=== PATIENT | female | born 1950 | race Two or more races ===

== ENCOUNTER 2017-01-09 20:52 | Inpatient (IN) | payer OTHER ==
[~2017-01-09] VITALS: Ht 160 cm; Wt 88.0 kg
[2017-01-09] MEDS ORDERED: HYDR-2762 PO (21:10)
--- NOTE | 2017-01-09 21:36 | PHYS DOC ---
Past Medical History Past Medical History: Arthritis, High Cholesterol, Hypertension Additional Past Medical Histor: thyroid problem Past Surgical History: Cholecystectomy, Hysterectomy, Other Additional Past Surgical Histo: bilateral knee Alcohol Use: None Drug Use: None Adult General Chief Complaint Chief Complaint: CHEST PAIN-CARDIAC NATURE HPI HPI Patient is a 66 year old female who presents with chest pain. Patient reports this afternoon she had onset of pain in her left chest that radiates to her left shoulder. She also reports she is short of breath. No clear inciting or mitigating factors. She took a single baby aspirin today for symptoms with insufficient relief. She reports she has had similar symptoms over the past year intermittently, but has never sought care for it. No other acute complaints. Review of Systems Review of Systems Constitutional: Denies fever or chills Eyes: Denies change in visual acuity or eye pain HENT: Denies nasal congestion or sore throat Respiratory: Shortness of breath, cough Cardiovascular: L chest pain GI: Denies abdominal pain, nausea, vomiting, bloody stools or diarrhea : Denies dysuria or hematuria Musculoskeletal: L shoulder pain Integument: Denies rash or skin lesions Neurologic: Denies headache, focal weakness or sensory changes Current Medications Current Medications Current Medications Medications (Trade) Dose Ordered Sig/Cherie Start Time Stop Time Status Last Admin Dose Admin Aspirin (Children'S Aspirin) 324 mg 1X ONCE 01/09/17 21:45 01/09/17 21:46 DC 01/09/17 21:47 324 MG Nitroglycerin (Nitrostat) 0.4 mg PRN Q5MIN PRN 01/09/17 21:45 01/10/17 21:44 01/09/17 22:04 0.4 MG Allergies Allergies Allergies Coded Allergies Type Severity Reaction Last Updated Verified No Known Drug Allergies 01/09/17 No Physical Exam Physical Exam Constitutional: Well developed, well nourished, no acute distress, non-toxic appearance HENT: Normocephalic, atraumatic, bilateral external ears normal Eyes: EOMI, conjunctiva normal, no discharge Neck: Normal range of motion, no stridor Cardiovascular: Heart rate normal, regular rhythm, no murmur Lungs & Thorax: Bilateral breath sounds clear to auscultation; L chest minimally TTP Abdomen: Bowel sounds normal, soft, non-distended, no TTP Skin: Warm, dry, no erythema, no rash Extremities: No obvious deformity, no edema; L shoulder without TTP, visible abnormality Neurologic: Alert and oriented X 3, no gross deficits noted Current Patient Data Vital Signs Vital Signs Date Time Temp Pulse Resp B/P Pulse Ox O2 Delivery O2 Flow Rate FiO2 01/09/17 22:30 66 121/61 97 Room Air 01/09/17 20:55 97.8 16 97.8 Lab Values Laboratory Tests Test 01/09/17 21:16 White Blood Count 8.2x10^3/uL (4.0-11.0) Red Blood Count 4.02x10^6/uL (3.50-5.40) Hemoglobin 12.4g/dL (12.0-15.5) Hematocrit 36.3% (36.0-47.0) Mean Corpuscular Volume 90fL (79-100) Mean Corpuscular Hemoglobin 31pg (25-35) Mean Corpuscular Hemoglobin Concent 34g/dL (31-37) Red Cell Distribution Width 13.5% (11.5-14.5) Platelet Count 230x10^3/uL (140-400) Neutrophils (%) (Auto) 55% (31-73) Lymphocytes (%) (Auto) 34% (24-48) Monocytes (%) (Auto) 9% (0-9) Eosinophils (%) (Auto) 2% (0-3) Basophils (%) (Auto) 1% (0-3) Neutrophils # (Auto) 4.5x10^3uL (1.8-7.7) Lymphocytes # (Auto) 2.7x10^3/uL (1.0-4.8) Monocytes # (Auto) 0.7x10^3/uL (0.0-1.1) Eosinophils # (Auto) 0.2x10^3/uL (0.0-0.7) Basophils # (Auto) 0.1x10^3/uL (0.0-0.2) Sodium Level 143mmol/L (136-145) Potassium Level 3.9mmol/L (3.5-5.1) Chloride Level 105mmol/L (98-107) Carbon Dioxide Level 28mmol/L (21-32) Anion Gap 10 (6-14) Blood Urea Nitrogen 21mg/dL (7-20) H Creatinine 0.8mg/dL (0.6-1.0) Estimated GFR (Cockcroft-Gault) 71.8 Glucose Level 105mg/dL (70-99) H Calcium Level 9.2mg/dL (8.5-10.1) Troponin I Quantitative < 0.017ng/mL (0.000-0.055) Laboratory Tests 01/09/17 21:16 Laboratory Tests 01/09/17 21:16 EKG EKG EKG (my read): sinus rhythm, rate 77, LAD, intervals wnl, nonspecific ST changes Radiology/Procedures Radiology/Procedures CXR (My read): No acute abnormality Course & Med Decision Making Course & Med Decision Making Pertinent Labs and Imaging studies reviewed. (See chart for details) Patient is 66-year-old female who presents with chest pain and shortness of breath. Must consider ACS. Aspirin, nitroglycerin ordered. EKG, chest x-ray, labs ordered to evaluate. Results of EKG and chest x-ray as above. Labs largely unremarkable. Troponin within normal limits. Discussed results with patient and family. Discussed Dr. Nicolas (covering for Dr. Espana), will admit under his care for further evaluation and treatment. Dragon Disclaimer Dragon Disclaimer This electronic medical record was generated, in whole or in part, using a voice recognition dictation system. Departure Departure Impression: Primary Impression: Chest pain Additional Impression: SOB (shortness of breath) Disposition: 09 ADMITTED INPATIENT Admitting Physician: Hipolito Nicolas Condition: STABLE Referrals: DEBRA ESPANA MD (PCP) Problem Qualifiers BELLE CAO MD Jan 09, 2017 21:37
[2017-01-09 21:43] LABS: BASO # 0.1 x10^3/uL (0.0-0.2); BASO % 1 % (0-3); EOS % 2 % (0-3); HEMATOCRIT 36.3 % (36.0-47.0); HEMOGLOBIN 12.4 g/dL (12.0-15.5); LYMPH # 2.7 x10^3/uL (1.0-4.8); LYMPH % 34 % (24-48); MEAN CORPUSCULAR HEMOGLOBIN 31 pg (25-35); MEAN CORPUSCULAR HGB CONC 34 g/dL (31-37); MEAN CORPUSCULAR VOLUME 90 fL (79-100); MONO % 9 % (0-9); NEUT % 55 % (31-73); PLATELET COUNT 230 x10^3/uL (140-400); RED BLOOD COUNT 4.02 x10^6/uL (3.50-5.40); RED CELL DISTRIBUTION WIDTH 13.5 % (11.5-14.5); WHITE BLOOD COUNT 8.2 x10^3/uL (4.0-11.0)
[2017-01-09] MEDS ORDERED: ASPIRIN 81 MG TAB.CHEW PO ONE (21:45)
[2017-01-09] MEDS: NITROGLYCERIN SUBLINGUAL 0.4 MG BOTTLE OF 25. SL PRN ×2 (21:48→22:04)
[2017-01-09 21:57] LABS: CALCIUM 9.2 mg/dL (8.5-10.1); CREATININE 0.8 mg/dL (0.6-1.0); GFR 71.8; POTASSIUM 3.9 mmol/L (3.5-5.1)
[2017-01-09] MEDS ORDERED: ACETAMINOPHEN 325 MG TABLET. PO PRN (22:45)
[2017-01-09] MEDS ORDERED: ONDANSETRON PF 4 MG/2 ML VIAL. IV PRN (22:45)
[2017-01-09] MEDS ORDERED: MORPHINE SULFATE 2 MG/ML DISP.SYRIN. IV PRN (22:45)
[2017-01-10 03:38] VITALS: BP 136/70
--- NOTE | 2017-01-10 07:40 | RAD ---
Chest, 2 views, 01/09/2017: History: Left-sided chest pain and shortness of breath Comparison is made to a study from 05/13/2012. The heart size and pulmonary vascularity are normal. No pulmonary infiltrates are seen. There is no evidence of pleural fluid. Moderate hypertrophic spurring is present in the spine. IMPRESSION: No acute cardiopulmonary abnormality is detected.
[2017-01-10 07:45] VITALS: BP 141/68
[2017-01-10] MEDS ORDERED: ERGO500012 (07:58)
[2017-01-10] MEDS ORDERED: LEVO100T82 (07:58)
[2017-01-10] MEDS ORDERED: LISI1TAB3 (07:58)
[2017-01-10] MEDS ORDERED: GABA300C8 (07:58)
[2017-01-10] MEDS ORDERED: ATOR40TA59 (07:58)
[2017-01-10] MEDS ORDERED: HYDROCO/APAP (07:58)
[2017-01-10] MEDS ORDERED: CYCLOBENZAPRINE 10 MG TABLET. PO PRN (08:30)
[2017-01-10] MEDS ORDERED: IV NORMAL SALINE 1000ML BAG 1,000 ML IV ONE (08:30)
[2017-01-10] MEDS ORDERED: LEVOTHYROXINE 100 MCG TABLET PO SCH (08:30)
[2017-01-10] MEDS ORDERED: HYDROCODONE/APAP 7.5/325MG TABLET. PO PRN (08:30)
--- NOTE | 2017-01-10 08:33 | EKG ---
[facility] [address] [place] [address] Test Date: 2017-01-09 Test Time: 20:59:45 Pat Name: JACKIE CASTRO Department: Room: Gender: F Certified First Assistant: : 1950 Requested By: BELLE CAO Order Number: [id number] Reading MD: Measurements Intervals [place] Rate: 77 P: 31 CT: 140 QRS: -7 QRSD: 80 T: 34 QT: 368 QTc: 418 Interpretive Statements SINUS RHYTHM LEFTWARD AXIS INCOMPLETE RIGHT BUNDLE BRANCH BLOCK OTHERWISE NORMAL ECG RI6.01 Compared to ECG 06/06/2012 16:23:22 Incomplete right bundle-branch block now present
--- NOTE | 2017-01-10 08:34 | PDOC ---
Provider Note Provider Note See admission H&P/23 hour short stay summary dictation #[id number] Impression: 1. Left chest pain, likely musculoskeletal but with risk factors: 2. Diabetes mellitus type 2: 3. Hypertension: 4. Hyperlipidemia: 5. Hypothyroidism: 6. Rheumatoid arthritis: JOCELYNE MARTÍNEZ MD Jan 10, 2017 08:34
[2017-01-10] MEDS ORDERED: HYDROCHLOROTHIAZIDE 12.5 MG CAPSULE. PO SCH (09:00)
[2017-01-10] MEDS ORDERED: LISINOPRIL 10 MG TABLET PO SCH (09:00)
--- NOTE | 2017-01-10 09:20 | PDOC2 ---
MERCEDES CHOPRA ROPING TENDER 01/10/17 0920: CARDIAC CONSULT DATE OF CONSULT Date of Consult DATE: 01/10/17 TIME: 09:20 REASON FOR CONSULT Reason for Consult: chest pain, SOB REFERRING PHYSICIAN Referring Physician: Dr. Billy Quick SOURCE Source: Chart review HISTORY OF PRESENT ILLNESS HISTORY OF PRESENT ILLNESS 66 year old non-Luxembourgish speaking female with a left shoulder and left breast pain while seated yesterday. One previous episode 6 months ago. Pain exacerbated by turning her head and moving left arm backwards as well as walking. Pain has been constant and she took one baby aspirin yesterday. Per son who interpreted, pain associated with dyspnea, dizziness, lightheadedness, nausea and vomiting. Troponin levels not consistent with AMI and no acute changes in EKG. Reason for Visit: chest and shoulder pain PAST MEDICAL HISTORY Cardiovascular: HTN Endocrine: Diabetes (pt son's denies this diagnosis) PAST SURGICAL HISTORY Past Surgical History: Cholecystectomy, Hysterectomy FAMILY HISTORY Family History: Heart Disease (sister in her 60s; brother in his 70s) SOCIAL HISTORY Smoke: No ALCOHOL: none Drugs: None Lives: with Family CURRENT MEDICATIONS CURRENT MEDICATIONS Current Medications Medications (Trade) Dose Ordered Sig/Cherie Route PRN Reason Start Time Stop Time Status Last Admin Dose Admin Aspirin (Children'S Aspirin) 324 mg 1X ONCE PO 01/09/17 21:45 01/09/17 21:46 DC 01/09/17 21:47 Nitroglycerin (Nitrostat) 0.4 mg PRN Q5MIN PRN SL CP RATING > 1/10 01/09/17 21:45 01/10/17 21:44 01/09/17 22:04 ALLERGIES ALLERGIES: Coded Allergies: No Known Drug Allergies (Unverified , 01/09/17) ROS Review of System 14 point review with pertinent positives in HPI PHYSICAL EXAM General: Alert, Cooperative HEENT: Atraumatic, PERRLA Lungs: Clear to auscultation Heart: Regular rate, Normal S1, Normal S2, No murmurs, Other (no carotid bruits ) Abdomen: Normal bowel sounds, No tenderness Extremities: No edema, Normal pulses Skin: No rashes Neuro: Normal speech Psych/Mental Status: Mental status NL MUSCULOSKELETAL: No deformity VITALS VITALS Vital Signs Date Time Temp Pulse Resp B/P Pulse Ox O2 Delivery O2 Flow Rate FiO2 01/10/17 07:45 97.9 61 18 141/68 95 Room Air 97.9 LABS Lab: Laboratory Tests Test 01/09/17 21:16 01/10/17 05:00 White Blood Count 8.2x10^3/uL (4.0-11.0) Red Blood Count 4.02x10^6/uL (3.50-5.40) Hemoglobin 12.4g/dL (12.0-15.5) Hematocrit 36.3% (36.0-47.0) Mean Corpuscular Volume 90fL (79-100) Mean Corpuscular Hemoglobin 31pg (25-35) Mean Corpuscular Hemoglobin Concent 34g/dL (31-37) Red Cell Distribution Width 13.5% (11.5-14.5) Platelet Count 230x10^3/uL (140-400) Neutrophils (%) (Auto) 55% (31-73) Lymphocytes (%) (Auto) 34% (24-48) Monocytes (%) (Auto) 9% (0-9) Eosinophils (%) (Auto) 2% (0-3) Basophils (%) (Auto) 1% (0-3) Neutrophils # (Auto) 4.5x10^3uL (1.8-7.7) Lymphocytes # (Auto) 2.7x10^3/uL (1.0-4.8) Monocytes # (Auto) 0.7x10^3/uL (0.0-1.1) Eosinophils # (Auto) 0.2x10^3/uL (0.0-0.7) Basophils # (Auto) 0.1x10^3/uL (0.0-0.2) Sodium Level 143mmol/L (136-145) Potassium Level 3.9mmol/L (3.5-5.1) Chloride Level 105mmol/L (98-107) Carbon Dioxide Level 28mmol/L (21-32) Anion Gap 10 (6-14) Blood Urea Nitrogen 21mg/dL (7-20) Creatinine 0.8mg/dL (0.6-1.0) Estimated GFR (Cockcroft-Gault) 71.8 Glucose Level 105mg/dL (70-99) Calcium Level 9.2mg/dL (8.5-10.1) Troponin I Quantitative < 0.017ng/mL (0.000-0.055) < 0.017ng/mL (0.000-0.055) IMAGES IMAGES CXR - WNL EKG EKG no acute changes ASSESSMENT/PLAN ASSESSMENT/PLAN 1. chest pain no acute changes in EKG and troponin levels not consistent with AMI pain reproducible; suspect musculoskeletal, however as it becomes worse with walking and she may be diabetic, will send for exercise treadmill (had breakfast earlier today) if non-ischemic, expect discharge later today 2. ? DM son denies 3. HTN continue meds Problems: AGATHA BROOKS MD 01/10/17 1636: CARDIAC CONSULT ALLERGIES ALLERGIES: Coded Allergies: No Known Drug Allergies (Unverified , 01/09/17) ASSESSMENT/PLAN ASSESSMENT/PLAN Patient seen and examined. Agree with TOPSTITCHER ZIGZAG's assessment and plan. Chest pain with atypical features, reproducible to palpation most probably musculoskeletal. Nuclear stress test did not show any significant ischemia. 2- D echo showed normal LV function. No further cardiac workup is indicated at this time. Thank you for your consultation. Problems: MERCEDES CHOPRA APRN Jan 10, 2017 09:20 AGATHA BROOKS MD Jan 10, 2017 16:36
[2017-01-10] MEDS: IBUPROFEN 600 MG TABLET. PO SCH ×2 (09:43→15:40)
[2017-01-10 11:05] VITALS: BP 137/64
--- NOTE | 2017-01-10 13:39 | RAD ---
APPROVED REPORT Test Type: Exercise Stress Nurse/Tech: CARTER Chacon RN Test Indications: Chest pain Cardiac History: HTN, see EHR Medications: see EHR Medical History: see EHR Resting ECG: SR Resting Heart Rate: 67 bpm Resting Blood Pressure: 153/76mmHg Pretest Chest Pain: No chest pain Nurse/Tech Notes Lungs CTA, heart tones WNL Consent: The procedure was explained to the patient in lay terms. Informed consent was witnessed. Enrique eout was entered into [employer]. History and Stress Test performed by RT Stephanie (R) (N) Stress Symptoms Dyspnea, No chest pain POST EXERCISE Reason for Termination: Reached target heart rate Target HR: Yes Max HR: 146 bpm 112% of Maximum Predicted HR: 130 bpm Exercise duration: 3:00 min:sec, 1 Stage Exercise capacity: 7METs Max Blood Pressure: 190/72mmHg Blood Pressure response to exercise: Normal blood pressure response during stress. Chest Pain: No. Arrhythmia: No. ST Change: No. INTERPRETATION Stress EKG Conclusion: Baseline EKG showed sinus rhythm. No ischemic changes at peak stress. No arr hythmias. Imaging Protocol IMAGE PROTOCOL: Rest Tc-99m/stress Tc-99m 1 day Rest: Stress: Viability: Radiopharm.Tc99m NeibmogbtIz81p Sestamibi Zfpp83uCr 33mCi Img Date 01/10/2017 01/10/2017 Inj-Img Nhmq49ncs. 45min. Rest Admin Site:IV - Right AntecubitalAdministrator:RT Stephanie (R)(N) Stress Admin Site: IV - Right AntecubitalAdministrator: RT Stephanie (R)(N) STRESS DATA End Diast. Vol.59.0mlAv. Heart Rate75.0bpm End Syst. Vol.17.0mlCO Index BSA0.0L/min Myocardial Mont164.0gEject. Tqwhpqpe01.0% Stress Rates Pk. Fill Rate2.90EDV/secLVtime Pk. Fill 179.13msec Pk. Empty Rate5.27ESV/secLVtime Pk. Bsthm566.98msec 11/28 Pk. Fill0.70EDV/sec Stress Scores Regional WT1.00Summed WT2.00 Regional WM0.00Summed WM0.00 Study quality was good. Left Ventricular size was Normal at Rest and Stress. Lung uptake was Normal. Left Ventricular ejection fraction is 71%. The rest and stress images show normal perfusion, normal contraction and thickening. LV Perf. Quant 17 Seg. SSS0.00 17 Seg. SRS0.00 17 Seg. SDS0.00 Stress Defect Extent (% LAD)0.00Rest Defect Extent (% LAD)0.00Rev. Defect Extent (% LAD)0.00 Stress Defect Extent (% LCX) 0.00Rest Defect Extent (% LCX)0.00Rev. Defect Extent (% LCX)0.00 Stress Defect Extent (% RCA)0.00Rest Defect Extent (% RCA)0.00Rev. Defect Extent (% RCA)0.00 Stress Defect Extent (% KELLEN)0.00Rest Defect Extent (% KELLEN)0.00Rev. Defect Extent (% KELLEN)0.00 Conclusion 1. Treadmill exercise cardioisotope stress test did not show any evidence of ischemia or infarct. 2. Normal left ventricular systolic function with ejection fraction calculated at 71%. 3. Patient had average exercise tolerance. Low risk for cardiac events.
[2017-01-10 15:30] VITALS: BP 128/56
--- NOTE | 2017-01-10 16:47 | DISCH ---
DISCHARGE INSTRUCTIONS Condition on Discharge Condition on Discharge: Stable Activity After Discharge Activity Instructions for Disc: Activity as tolerated Other activity instructions: heat or ice to the left posterior shoulder Diet after Discharge Diet after Discharge: Cardiac Contacting the DRJin after DC Call your doctor for: If your condition worsens Follow-Up Follow up with: Dr. Espana in 1-2 weeks JOCELYNE MARTÍNEZ MD Jan 10, 2017 16:47
[2017-01-10] MEDS ORDERED: CYCL10TA2 PO (16:51)
[2017-01-10] MEDS ORDERED: IBUP200T77 PO (16:51)
[2017-01-10] MEDS ORDERED: ATORVASTATIN CALCIUM 40 MG TABLET. PO SCH (21:00)
--- NOTE | 2017-01-10 23:39 | HP ---
ADMIT DATE: 01/10/2017 ADMISSION HISTORY AND PHYSICAL AND 23-HOUR SHORT-STAY SUMMARY ATTENDING PHYSICIAN: Jocelyne Martínez MD CHIEF COMPLAINT: Left chest pain. HISTORY OF PRESENT ILLNESS: The patient is a 66-year-old female with the onset at approximately 3:00 p.m. earlier in the day of admission of left-sided chest pain. It was rated 8/10 level of pain. It began while she was watching TV. It seemed disturbed mostly in the left posterior back and then shoot straight through to the left anterior chest. She maybe had an episode of this in the past 6 months and has had several episodes over the last year. This was more significant. She did have associated shortness of breath, dizziness and nausea. There are no palpitations that she is aware of. She did receive nitroglycerin in the Emergency Room and treatment and the pain decreased to 2/10 level. PAST MEDICAL HISTORY: Significant for hypertension, hyperlipidemia, diabetes mellitus type 2, which is diet controlled, hypothyroidism, and rheumatoid arthritis. PAST SURGICAL HISTORY: She has had surgery on her bilateral knees. SOCIAL HISTORY: She lives at home with her son and two brothers. She has never smoked. She denies any alcohol use. ALLERGIES TO MEDICATIONS: No known drug allergies. MEDICATIONS: At time of admission include Lipitor 40 mg p.o. daily, vitamin D 50,000 units p.o. weekly, gabapentin 300 mg, although it is uncertain if she is actually taking this or not, [place] 7.5/325 one p.o. q. 6 hours p.r.n., levothyroxine 100 mcg p.o. daily, lisinopril/hydrochlorothiazide 10/12.5 one p.o. daily. FAMILY HISTORY: Noncontributory, although her mother has been diagnosed with a stroke in the past. REVIEW OF SYSTEMS: The patient's history and review of systems is gathered through her son who is translating for her. There have been no fevers. No difficulty swallowing. No cough or other episodes of shortness of breath, no palpitations, no heartburn or reflux. No nausea or vomiting. She does have some constipation, which she relates to her medications, but nothing of any significance lately. No lower extremity swelling at present, although she does have some occasional swelling. It has not been progressive. She is voiding without any difficulty and denies any dysuria or hematuria. She denies any localized weakness. PHYSICAL EXAMINATION: VITAL SIGNS: At the time of admission are temperature 97.8, pulse 75, respiratory rate 16, blood pressure 177/86, O2 sat 96% on room air. GENERAL: The patient is alert. She is answering questions through her son who is translating, in no acute distress, well nourished and developed appearing. HEENT: The pupils are equal and round. The extraocular motions are intact. Sclerae are anicteric. Oropharynx is moist. NECK: Without JVD or bruit. No thyromegaly. No significant anterior cervical adenopathy. CHEST: Clear to auscultation bilaterally with okay air movement. CARDIOVASCULAR: The heart has a regular rate and rhythm without murmur. ABDOMEN: Positive bowel sounds, soft, nontender, nondistended, no guarding or rebound. EXTREMITIES: There is no edema. NEUROLOGIC: Grossly intact and nonfocal. BACK: There is tenderness to palpation in the superior portion of the chest wall posteriorly at approximately the T3 or T4 level. Palpation of this area does recreate some of the discomfort. There is also some anterior chest pain to palpation, again which does recreate some of the discomfort. EXTREMITIES: There is no edema. HOSPITAL COURSE: The patient was admitted. She underwent serial cardiac enzymes, which were negative. She was seen in consultation with Cardiology. She was started on ibuprofen 600 mg t.i.d. She did have some improvement in her discomfort. Her other home medications were continued. She did undergo an exercise stress test, which was read as low risk average exercise tolerance, normal left ventricular systolic function with an ejection fraction of 71%. No evidence of ischemia or infarct. Based on the negative stress test and the high likelihood of reproducible pain with palpation, it was felt that she could be discharged to home. DISCHARGE DIAGNOSES: 1. Left chest pain, atypical and most likely musculoskeletal in etiology. 2. Diabetes mellitus type 2, diet controlled. 3. Hypertension. 4. Hyperlipidemia. 5. Hypothyroidism. 6. Rheumatoid arthritis. LABORATORIES DURING THE HOSPITALIZATION: WBC 8.2, hemoglobin 12.4, platelets 230. Sodium 143, potassium 3.9, chloride 105, CO2 28, BUN 21, creatinine 0.8, glucose 105. Serial troponins were negative. Chest x-ray did not show any acute abnormality. EKG, preliminary read showed nonspecific ST wave changes. DISCHARGE DIET: Cardiac diet. DISCHARGE ACTIVITY: As tolerated. FOLLOWUP: The patient is to follow up with Dr. Espana in 1-2 weeks. MEDICATIONS AT THE TIME DISCHARGE: Unchanged except for the addition of Flexeril 10 mg p.o. t.i.d. p.r.n. and ibuprofen 200 mg over the counter 2-3 pills t.i.d. p.r.n. JOCELYNE MARTÍNEZ MD DR: VEL/remy JOB#: [id number] / [id number] JENNIFERD
== END 2017-01-10 17:00 | disposition home or self-care (01) | DRG 206 ==
LOC: ER 20:52 → 6 SOUTH 22:34
PROVIDERS: ADMIT Family Medicine; ATTEND Family Medicine
DX: M94.0 Chondrocostal junction syndrome [Tietze] (principal); E03.9 Hypothyroidism, unspecified; E11.9 Type 2 diabetes mellitus without complications; E78.00 Pure hypercholesterolemia, unspecified; E78.5 Hyperlipidemia, unspecified; I10 Essential (primary) hypertension; M06.9 Rheumatoid arthritis, unspecified; N64.4 Mastodynia; Z90.49 Acquired absence of other specified parts of digestive tract; Z90.710 Acquired absence of both cervix and uterus; Z82.49 Family history of ischemic heart disease and other diseases of the circulatory system; Z79.899 Other long term (current) drug therapy
CPT/HCPCS: 36415; 71020; 78452; 80048; 84484; 85027; 93005; 93017; 96374; 96376; A9500; J7030; 99285-25

== ENCOUNTER → 2017-12-28 | Outpatient (CLI) | payer OTHER | END | disposition home or self-care (01) | LOC: KCIC DEXA 14:02 | DX: Z13.820 Encounter for screening for osteoporosis (principal); M85.88 Other specified disorders of bone density and structure, other site; Z78.0 Asymptomatic menopausal state | CPT/HCPCS: 77080 ==

== ENCOUNTER → 2018-12-11 | Outpatient (CLI) | payer OTHER ==
[~2018-12-11] MED LIST: ATOR40TA59; CYCL10TA2 PO; ERGO500027; GABA300C18; HYDR-2765 PO; HYDROCO/APAP; IBUP200T77 PO; LEVO100T82; LISI1TAB3
--- NOTE | 2018-12-11 11:15 | KCIC ---
Examination: Ultrasound abdomen complete and ultrasound pelvis limited HISTORY: History of abdominal pain, pelvic pain COMPARISON: None available FINDINGS: The visualized vaginal cuff region grossly appears unremarkable. The right ovary, left ovary could not be identified. No evidence of free fluid identified in the pelvis. The liver measures 17.1 cm. There is increased echogenicity noted in the liver likely hepatic steatosis. The common bile duct measures 1 cm in diameter. The gallbladder is not identified however in the region of the right upper quadrant there is fluid-filled stomach which limits evaluation. The right kidney measures 9.3 x 3.7 x 4.0 cm. The left kidney measures 10.1 x 4.5 x 4.2 cm. The spleen measures 7.7 cm in length. The visualized pancreas grossly appears unremarkable. However evaluation limited due to bowel gas. The evaluation of the aorta, IVC limited due to bowel gas. IMPRESSION: 1. Hepatomegaly with hepatic steatosis. 2. Prominent appearing common bile duct measuring 1 cm in diameter probably post cholecystectomy changes. Correlate with lab values. 3. Limited examination due to patient body habitus and due to bowel gas. 4. The vaginal cuff region grossly appears unremarkable. The right and left ovaries could not be identified. Electronically signed by: Hair Holt MD (12/11/2018 11:11 AM) [id number]
--- NOTE | 2018-12-12 08:33 | KCIC ---
EXAM: AP, lateral and lumbosacral spot views of the lumbar spine DATE: 12/11/2018 11:00 AM INDICATION: Left-sided low back pain for 2 weeks COMPARISON: No Prior FINDINGS: There are 5 nonrib-bearing lumbar-type vertebral bodies. Vertebral body heights are preserved. Mild L1-2, L4-5 and L5-S1 intervertebral disc height loss. Moderate facet degenerative changes at L4-5 and L5-S1. Trace anterolisthesis of L4 on L5 (measuring 3 mm). Cholecystectomy clips are seen. IMPRESSION: 1. Multilevel spondylosis as above. 2. Negative acute fracture. 3. Trace anterolisthesis of L4 on L5. Electronically signed by: Edy Medina MD (12/12/2018 8:28 AM) [id number]
== END | disposition home or self-care (01) ==
LOC: KCIC US 08:38
PROVIDERS: ATTEND Family Medicine
DX: K76.0 Fatty (change of) liver, not elsewhere classified (principal); R16.0 Hepatomegaly, not elsewhere classified; M47.896 Other spondylosis, lumbar region; M51.36 Other intervertebral disc degeneration, lumbar region; M51.37 Other intervertebral disc degeneration, lumbosacral region; Z90.710 Acquired absence of both cervix and uterus; Z90.49 Acquired absence of other specified parts of digestive tract
CPT/HCPCS: 72100; 76700; 76857

== ENCOUNTER 2019-03-07 14:14 | Emergency (ER) | payer OTHER ==
[~2019-03-07] VITALS: Ht 160 cm; Wt 83.5 kg
[2019-03-07 15:01] VITALS: BP 218/93
[2019-03-07] MEDS ORDERED: HYDROcodone/APAP 5/325MG 1 TAB TABLET PO ONE (15:30)
[2019-03-07] MEDS ORDERED: NAPROXEN 500 MG TABLET PO STA (15:36)
--- NOTE | 2019-03-07 15:37 | RAD ---
Examination: 4 views of the right knee HISTORY: History of hyperextended right knee, pain COMPARISON: None available FINDINGS: Right knee arthroplasty changes in normal alignment. There is no acute fracture identified. Small knee joint effusion is identified IMPRESSION: 1. No acute osseous findings. 2. Small knee joint effusion. Electronically signed by: Hair Holt MD (03/07/2019 3:35 PM) [id number]
--- NOTE | 2019-03-07 16:22 | PHYS DOC ---
Past Medical History Past Medical History: Arthritis, High Cholesterol, Hypertension Additional Past Medical Histor: thyroid problem Past Surgical History: Cholecystectomy, Hysterectomy, Other Additional Past Surgical Histo: bilateral knee Alcohol Use: None Drug Use: None Adult General Chief Complaint Chief Complaint: KNEE INJURY HPI HPI Patient is a 68 year old female with history of high cholesterol, hypertension , who presents to the ED today complaining of 8 out of 10 right anterior knee pain that began yesterday while trying to put her socks on. She states she dislocated and relocated the knee. Patient states she has previous history of right knee replacement. She describes the pain as sharp and worse on weight bearing. She has taken hydrocodone with some relief. Review of Systems Review of Systems Constitutional: Denies fever or chills [] Musculoskeletal: Reports right knee pain Integument: Denies rash or skin lesions [] Neurologic: Denies headache, focal weakness or sensory changes [] All other systems were reviewed and found to be within normal limits, except as documented in this note. Current Medications Current Medications Current Medications Medications (Trade) Dose Ordered Sig/Cherie Start Time Stop Time Status Last Admin Dose Admin Acetaminophen/ Hydrocodone Bitart (Lortab 5/325) 2 tab 1X ONCE 03/07/19 15:30 03/07/19 15:31 DC 03/07/19 15:55 2 TAB Naproxen (Naprosyn) 500 mg 1X STAT 03/07/19 15:36 03/07/19 15:44 DC 03/07/19 15:55 500 MG Allergies Allergies Allergies Coded Allergies Type Severity Reaction Last Updated Verified No Known Drug Allergies 01/09/17 No Physical Exam Physical Exam Constitutional: Well developed, well nourished, no acute distress, non-toxic appearance. [] Skin: Warm, dry, no erythema, no rash. [] Back: No tenderness, no CVA tenderness. [] Extremities: Right knee with no obvious deformity, old healed surgical incision noted on the right anterior knee. Diffuse tenderness throughout the right anterior knee, full range of motion to the right knee. No laxity. +2 right pedal pulse. Cap refill less than 2 seconds the right lower extremity. Sensation intact to the right lower extremity. Neurologic: Alert and oriented X 3, normal motor function, normal sensory function, no focal deficits noted. [] Psychologic: Affect normal, judgement normal, mood normal. [] Current Patient Data Vital Signs Vital Signs Date Time Temp Pulse Resp B/P (MAP) Pulse Ox O2 Delivery O2 Flow Rate FiO2 03/07/19 15:55 16 98 03/07/19 15:01 98.2 67 218/93 (134) Room Air 98.2 EKG EKG [] Radiology/Procedures Radiology/Procedures []PROCEDURE: KNEE RIGHT 4V Examination: 4 views of the right knee HISTORY: History of hyperextended right knee, pain COMPARISON: None available FINDINGS: Right knee arthroplasty changes in normal alignment. There is no acute fracture identified. Small knee joint effusion is identified IMPRESSION: 1. No acute osseous findings. 2. Small knee joint effusion. Electronically signed by: Hair Holt MD (03/07/2019 3:35 PM) [id number] DICTATED and SIGNED BY: HAIR HOLT MD DATE: 03/07/19 1535 Course & Med Decision Making Course & Med Decision Making Pertinent Labs and Imaging studies reviewed. (See chart for details) This is a 68-year-old. Patient presenting to the ED today with right knee pain, she believes she dislocated and relocated the knee last night. Right knee x- rays interpreted by radiologist are negative for any acute findings. Noted for small joint effusion. Raul bandage applied to the right knee by the ED RN, neurovascular exam is intact. Ice elevation encouraged. Patient has hydrocodone at home she can take it as needed for pain. Follow-up with orthopedic doctor. Omayra Disclaimer Dragon Disclaimer This electronic medical record was generated, in whole or in part, using a voice recognition dictation system. Departure Departure Impression: Primary Impression: Right knee sprain Additional Impression: Joint effusion, knee Disposition: HOME, SELF-CARE Condition: STABLE Referrals: DEBRA RICHMOND MD (PCP) JOSEPH FLORES MD follow up in 1-2 weeks Patient Instructions: Knee Sprain Additional Instructions: You were seen for right knee pain, your right knee xrays are negative for any acute findings. You have small amount of fluid in the right knee which your body should absorb in a few days. Right pinnae with a Raul bandage provided as needed and tolerated. Try to ice and elevate the knee. Continue taking your hydrocodone at home as needed for pain. Problem Qualifiers Primary Impression: Right knee sprain Encounter type: initial encounter Involved ligament of knee: unspecified ligament Qualified Codes: S83.91XA - Sprain of unspecified site of right knee , initial encounter Additional Impression: Joint effusion, knee Laterality: right Qualified Codes: M25.461 - Effusion, right knee SIOMARA LARKIN [employer] Mar 07, 2019 16:22
== END 2019-03-07 16:28 | disposition home or self-care (01) ==
LOC: ER 14:14
DX: S83.8X1A Sprain of other specified parts of right knee, initial encounter (principal); M25.461 Effusion, right knee; E78.00 Pure hypercholesterolemia, unspecified; I10 Essential (primary) hypertension; Z90.49 Acquired absence of other specified parts of digestive tract; Z90.710 Acquired absence of both cervix and uterus; Z96.651 Presence of right artificial knee joint; X58.XXXA Exposure to other specified factors, initial encounter; Y93.89 Activity, other specified; Y92.89 Other specified places as the place of occurrence of the external cause; Y99.8 Other external cause status
CPT/HCPCS: 73564; 99284

== ENCOUNTER → 2020-05-18 | Outpatient (CLI) | payer OTHER, MEDICAID ==
[~2020-05-18] MED LIST changes: +LISI1TAB23; -LISI1TAB3
--- NOTE | 2020-05-18 15:09 | KCIC ---
EXAM: 3 Views Left Shoulder DATE: 05/18/2020 12:00 AM INDICATION: Reason: LT SHOULDER PAIN XS 2 WEEKS, NO KNOWN INJURY / Spl. Instructions: / History: COMPARISON: No Prior FINDINGS: There is no evidence for acute fracture or dislocation. AC joint is congruent. AC joint degenerative changes are seen. Humeral head is not high riding. Small calcific focus is seen at the posterior aspect of the greater tuberosity, possibly calcific tendinosis. IMPRESSION: 1. No acute fracture or dislocation. 2. AC joint degenerative changes are seen. 3. Small calcific focus is seen at the posterior aspect of the greater tuberosity, possibly calcific tendinosis. Electronically signed by: Edy Medina MD (05/18/2020 3:06 PM) [facility]
== END | disposition home or self-care (01) ==
LOC: KCIC 13:11
PROVIDERS: ATTEND Family Medicine
DX: M19.012 Primary osteoarthritis, left shoulder (principal)
CPT/HCPCS: 73030

== ENCOUNTER → 2022-03-09 | Outpatient (CLI) | payer OTHER, MEDICAID ==
[~2022-03-09] MED LIST changes: +CYCL10TA19 PO; -CYCL10TA2 PO; -LISI1TAB23; +LISI1TAB35
--- NOTE | 2022-03-09 14:03 | RAD ---
INDICATION: 71 years of age asymptomatic female patient presents for screening mammography. No family history of breast cancer. TECHNIQUE: Full field craniocaudal and mediolateral oblique images of both breasts were obtained usi ng digital technique without tomosynthesis and also analyzed with computer-aided detection software. COMPARISON: Baseline mammogram . BREAST COMPOSITION: Category B: There are scattered fibroglandular densities. FINDINGS: Right breast: Focal asymmetry at the 12:00 position 3 cm deep to the nipple with questionable archite ctural changes appreciated on the CC projection. Additional asymmetry appreciated on the MLO projecti on slightly below the posterior nipple line, 4 cm deep to the nipple. Benign vascular calcifications. Left breast: Focal asymmetry in the upper outer quadrant 8 cm deep to the nipple is a slightly better appreciated on the CC projection. There is a circumscribed 5 mm hypodense asymmetry on the CC projec tion in the slightly medial breast, 6.5 cm deep to the nipple. This is not definitely appreciated on the MLO projection. IMPRESSION: 1. Focal asymmetry at the 12:00 position, 3 cm deep to the nipple with questionable architectural ad nges appreciated on the CC projection. Additional evaluation with diagnostic right breast mammogram w ith spot compression. Followed with possible targeted right breast ultrasound. 2. Asymmetry in the slightly inferior right breast appreciated on the MLO projection, 4 cm deep to th e nipple. Additional evaluation with diagnostic right breast mammogram with spot compression. Possibl y follow-up with targeted right breast ultrasound. 3. Focal asymmetry in the upper outer quadrant, 8 cm deep to the nipple in the left breast. Additiona l evaluation with diagnostic left breast mammogram with spot compression. Possibly followed with targ eted left breast ultrasound. 4. Circumscribed 5 mm hypodense asymmetry appreciated on the CC projection in the slightly medial david ast, 6.5 cm deep to the nipple. Additional evaluation with targeted left breast ultrasound. RECOMMENDATION: The patient will be contacted to return for additional imaging and a supplemental rep ort will follow. BIRADS 0: INCOMPLETE - NEED ADDITIONAL IMAGING EVALUATION AND/OR PRIOR MAMMOGRAMS FOR COMPARISON. This study was interpreted with the benefit of Computerized Aided Detection (CAD). Patient information is entered into the reminder system with a target due date for the next screening mammogram. Mammography is the most sensitive method for finding small breast cancers, but it does not detect the m all and is not a substitute for careful clinical examination. A negative mammogram does not negate a clinically suspicious finding and should not result in delay in biopsying a clinically suspicious a bnormality. "Our facility is accredited by the [employer] Mammography Program." Electronically signed by: Arsenio Manjarrez DO (03/09/2022 2:00 PM) [id number]
== END ==
LOC: MAMMO 11:38
PROVIDERS: ATTEND Family Medicine
DX: Z12.31 Encounter for screening mammogram for malignant neoplasm of breast (principal); N64.89 Other specified disorders of breast
CPT/HCPCS: 77067

== ENCOUNTER → 2022-03-20 | Outpatient (CLI) | payer OTHER, MEDICAID ==
--- NOTE | 2022-03-20 14:34 | RAD ---
PROCEDURE: US BREAST LT, MG DIAGNOSTIC BILAT HISTORY: The patient is 71 years old and is seen for Reason: ABNORMAL LT MAMM / Spl. Instructions: / History: . COMPARISON: March 09, 2022 TECHNIQUE: Spot compression CC and MLO views of the bilateral breasts. Left breast ultrasound was als o performed. DENSITY: There are scattered fibroglandular densities. FINDINGS: Right mammogram: Right retroareolar asymmetry is less apparent on spot compression views. Right infer ior breast asymmetry is less apparent on spot compression views. No suspicious microcalcification. Left mammogram: Left upper outer asymmetry is less apparent on spot compression views. Left medial br east asymmetry persists on spot compression views. Left ultrasound: Small hypoechoic mass within the left breast 8 cm from the nipple 3:30 position loi ures 0.5 x 0.3 cm. IMPRESSION: 1. Bilateral asymmetries are less apparent on spot compression views, may relate to overlapping fibr oglandular tissue. Recommend 6 month follow-up bilateral mammograms to further assess. 2. Hypoechoic left breast mass, may represent intramammary lymph node. Recommend 6 month follow-up u ltrasound. Recommend annual screening mammograms per [employer] guidelines. Patient will be due in six months. BI-RADS category 3 Probably benign Our clinic nurse has been instructed to assist with communicating findings and recommendations to the patient's referring physician and in scheduling follow-up. Patient entered into a reminder system for annual screening mammogram. Electronically signed by: Jimbo Rivera DO (03/20/2022 2:32 PM) [id number]
== END ==
LOC: MAMMO 13:21
PROVIDERS: ATTEND Family Medicine
DX: N63.23 Unspecified lump in the left breast, lower outer quadrant (principal)
CPT/HCPCS: 76641; 77066